=== PATIENT | male | born 1990 | race Caucasian/White ===

== ENCOUNTER 2017-01-08 15:15 | Emergency (ER) | payer BC ==
[2017-01-08 15:27] VITALS: BP 125/90; PULSE 91; RESP 18; TEMP 99.5; O2SAT 97
--- NOTE | 2017-01-08 16:46 | UCPHY ---
H & P Time Seen by Provider: 01/08/17 16:21 Patient Type: New HPI/ROS: This patient has a right-sided area of facial swelling that is discrete located just posterior to the zygoma and increasing in size over the past 3 days. Shortly after its onset he clean the sewing needle with rubbing alcohol and punctured the lesion with a scant amount of purulent discharge but it has significantly increased in size since that time to approximately 3 or 4 times it is original size and is now causing moderate discomfort. ROS: No high fevers or chills. 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 No exposure to farm animals. No other skin lesions. 5 point ROS is otherwise negative. Past Medical/Surgical History: He had a cyst in the center of his forehead that was removed by safety director in high school. Otherwise healthy. No known history of MRSA Smoking Status: Heavy smoker Physical Exam: Physical Exam Vital signs are normal. General: No acute distress HEENT: There is a 3 x 2 cm area of mild erythema, fluctuance and mild tenderness just posterior to the right zygoma. Eyes: Pupils equal and react to light. Extraocular motions are intact. Lungs: No respiratory distress. Cardiac: Brisk capillary refill is intact throughout. Skin: No rash or pallor. No other notable skin lesions appreciated. Neuro: Alert and oriented x3 with no sensorimotor deficits. Initial differential diagnosis: Infected sebaceous cyst, abscess, lipoma Constitutional: Initial Vital Signs Temperature (C) 37.5 C 01/08/17 15:23 Heart Rate 91 01/08/17 15:23 Respiratory Rate 18 01/08/17 15:23 Blood Pressure 125/90 H 01/08/17 15:23 O2 Sat (%) 97 01/08/17 15:23 Allergies/Adverse Reactions: No Known Allergies Allergy (Unverified 01/08/17 15:23) Home Medications: Medication Instructions Recorded Doxycycline Hyclate [Vibramycin 100 mg PO BID #14 cap 01/08/17 100 MG (*)] MDM/Departure - MDM Procedures: Simple I&D: After verbal consent using chlorhexidine scrub under sterile conditions with an 18 gauge needle I was able to remove 2 cc of purulent material. However with manual expression is unable to drain the rest of the still sizable fluctuant region. I then made a small 4 mm incision with a 11. Scalpel blade and with manual expression moderate amount of purulent material is expressed along with a small amount of cheesy sebaceous substance. Patient tolerated this well. Wound was then clean. There were no complications. Bandage was placed by our tech. ED Course/Re-evaluation: Discussion: Infected sebaceous cyst in atypical location-right zygoma region successful I&D. Given mild associated cellulitis will also cover him with doxycycline antibiotic. I did obtain a culture which is pending - Depart Disposition: Home, Routine, Self-Care Clinical Impression: Infected sebaceous cyst of skin Condition: Good Instructions: Abscess (ED), Warm Compress or Soak (ED) Additional Instructions: Diagnosis: Infected sebaceous cyst- drained Plan: Doxycycline antibiotic. Take a probiotic or yogurt while on this and protector skin sunscreen while on it. Ibuprofen Tylenol for pain as needed Clean the area daily and apply a bandage Return for any significant worsening despite the treatment plan Stand Alone Forms: Work Excuse Prescriptions: Doxycycline Hyclate [Vibramycin 100 MG (*)] 100 mg PO BID #14 cap - PQRS PQRS Measurement: NA
== END 2017-01-08 17:00 | disposition home or self-care (01) ==
LOC: CED 15:15
PROC: 0H91XZZ Drainage of Face Skin, External Approach (ICD-10-PCS; principal; 2017-01-08)
DX: L72.3 Sebaceous cyst (principal)
CPT/HCPCS: G0463-PO